=== PATIENT | female | born 1995 | race African-American/Black ===

== ENCOUNTER 2019-12-09 17:05 | Emergency (ER) | payer BC ==
[~2019-12-09] VITALS: Ht 162.6 cm; Wt 63.0 kg
[2019-12-09 17:42] VITALS: BP 161/75
== END 2019-12-09 22:45 | disposition left against medical advice (07) ==
LOC: ER 17:05
DX: Z53.21 Procedure and treatment not carried out due to patient leaving prior to being seen by health care provider (principal)